=== PATIENT | male | born 1990 | race Caucasian/White ===

== ENCOUNTER 2017-08-16 13:48 | Emergency (ER) | payer SELFPAY ==
[~2017-08-16] VITALS: Ht 172.7 cm; Wt 63.3 kg
[~2017-08-16 13:48] MED LIST: AZITHROMYCIN500 M1 PO; IBUPROFEN600 MG PO; IBUPROFEN800 MG PO; MOTRIN800 MG PO; NOHOMEMEDS; NORCO 7.5/321 TABLET PO; PEN-VEE K,VEET500 MG PO; PHENAZOPYRIDIN200 MG PO; TRAMADOL HCL50 MG PO; ZOFRAN ODT4 MG PO
[2017-08-16] MEDS ORDERED: PEN-VEE K,VEET500 MG PO (16:31)
[2017-08-16] MEDS ORDERED: INDOCIN50 MG PO (16:31)
[2017-08-16] MEDS ORDERED: ULTRACET1 TABLET PO (16:34)
[2017-08-16 16:58] VITALS: BP 123/87
== END 2017-08-16 16:59 | disposition home or self-care (01) ==
LOC: EME 13:48
DX: K02.9 Dental caries, unspecified (principal); F17.200 Nicotine dependence, unspecified, uncomplicated

== ENCOUNTER 2017-08-24 21:05 | Emergency (ER) | payer OTHER ==
[~2017-08-24] VITALS: Ht 172.7 cm; Wt 63.0 kg
[~2017-08-24 21:05] MED LIST changes: +INDOCIN50 MG PO; +ULTRACET1 TABLET PO
[2017-08-24 23:43] VITALS: BP 128/72
== END 2017-08-24 23:43 | disposition home or self-care (01) ==
LOC: EME 21:05
DX: S80.01XA Contusion of right knee, initial encounter (principal); W18.30XA Fall on same level, unspecified, initial encounter; Y93.89 Activity, other specified; Y99.0 Civilian activity done for income or pay; Y92.59 Other trade areas as the place of occurrence of the external cause
CPT/HCPCS: 73564; 99281; 99283

== ENCOUNTER 2017-12-13 20:05 | Emergency (ER) | payer SELFPAY ==
[~2017-12-13] VITALS: Ht 172.7 cm; Wt 58.9 kg
[2017-12-13 20:38] LABS: APPEARANCE CLOUDY ((CLEAR)); BILIRUBIN NEGATIVE; BLOOD NEGATIVE; COLOR YELLOW ((YELLOW)); GLUCOSE (STRIP) NEGATIVE; KETONES NEGATIVE; LEUKOCYTES NEGATIVE; NITRITE NEGATIVE; PROTEIN (STRIP) NEGATIVE; SPECIFIC GRAVITY 1.027 (1.000-1.030)
[2017-12-13 20:57] LABS: BACTERIA NONE SEEN /HPF; CALCIUM OXALATE CRYSTALS 3+ /HPF; EPITHELIAL CELLS NONE SEEN /HPF; MUCUS TRACE /LPF; WHITE BLOOD CELLS NONE SEEN /HPF (0-5)
[2017-12-13 21:30] LABS: HEMATOCRIT 50.3 % (38.0-50.0); HEMOGLOBIN 17.5 G/DL (12.5-16.6); MCH 33.2 PG (29.0-34.0); MCHC 34.8 G/DL (30.0-36.0); MCV 95.4 FL (86-99); PLATELET COUNT 235 K/uL (156-360); RBC DIS.WIDTH-CV 12.1 % (11.8-14.6); RED BLOOD COUNT 5.27 M/uL (4.00-5.50); WHITE BLOOD COUNT 14.4 K/uL (4.1-10.2)
[2017-12-13 21:35] LABS: CHLORIDE 104 mEq/L (99-109); POTASSIUM 4.5 mEq/L (3.7-5.4); SODIUM 141 mEq/L (136-147)
[2017-12-13 21:36] LABS: GLUCOSE 88 mg/dL (70-99)
[2017-12-13 21:40] LABS: GFR ESTIMATE (CALCULATED) > 59 mL/min/ (58.99-99999)
[2017-12-13 21:41] LABS: UREA NITROGEN (BUN) 17 mg/dL (9-23)
[2017-12-13] MEDS ORDERED: COLACE100 MG PO (22:51)
[2017-12-13] MEDS ORDERED: PYRIDIUM200 MG PO (22:51)
[2017-12-13 22:59] VITALS: BP 111/74
== END 2017-12-13 23:00 | disposition home or self-care (01) ==
LOC: EXP 20:05 → EME 20:05 → EXP 23:00
PROVIDERS: Physician Assistant
DX: R30.0 Dysuria (principal); K59.00 Constipation, unspecified; F17.200 Nicotine dependence, unspecified, uncomplicated; Z87.440 Personal history of urinary (tract) infections
CPT/HCPCS: 74176; 80048; 81003; 85027

== ENCOUNTER 2018-03-12 21:32 | Emergency (ER) | payer SELFPAY ==
[~2018-03-12] VITALS: Ht 172.7 cm; Wt 59.9 kg
[~2018-03-12 21:32] MED LIST changes: +COLACE100 MG PO; +PYRIDIUM200 MG PO
[2018-03-12 22:24] LABS: HEMATOCRIT 48.9 % (38.0-50.0); HEMOGLOBIN 16.8 G/DL (12.5-16.6); MCH 32.9 PG (29.0-34.0); MCHC 34.4 G/DL (30.0-36.0); MCV 95.9 FL (86-99); PLATELET COUNT 194 K/uL (156-360); RBC DIS.WIDTH-CV 11.8 % (11.8-14.6); RBC DIS.WIDTH-SD 41.6 % (39-53); WHITE BLOOD COUNT 12.4 K/uL (4.1-10.2)
[2018-03-12 22:34] LABS: CHLORIDE 105 mEq/L (99-109); POTASSIUM 4.5 mEq/L (3.7-5.4); SODIUM 141 mEq/L (136-147)
[2018-03-12 22:36] LABS: GLUCOSE 86 mg/dL (70-99)
[2018-03-12 22:40] LABS: GFR ESTIMATE (CALCULATED) > 59 mL/min/ (58.99-99999)
[2018-03-12 22:41] LABS: UREA NITROGEN (BUN) 13 mg/dL (9-23)
[2018-03-13 00:59] LABS: APPEARANCE CLOUDY ((CLEAR)); BILIRUBIN NEGATIVE; BLOOD NEGATIVE; COLOR YELLOW ((YELLOW)); GLUCOSE (STRIP) NEGATIVE; KETONES NEGATIVE; LEUKOCYTES NEGATIVE; NITRITE NEGATIVE; PROTEIN (STRIP) 30; SPECIFIC GRAVITY 1.023 (1.000-1.030)
[2018-03-13 01:07] LABS: BACTERIA NONE SEEN /HPF; EPITHELIAL CELLS NONE SEEN /HPF; MUCUS 4+ /LPF; RED BLOOD CELLS 0-5 /HPF (0-5); UCUL ADDED? YES
[2018-03-13] MEDS ORDERED: CIPRO500 MG PO (01:21)
[2018-03-13 01:32] VITALS: BP 110/71
== END 2018-03-13 01:33 | disposition home or self-care (01) ==
LOC: EME 21:32
DX: N39.0 Urinary tract infection, site not specified (principal); N50.82 Scrotal pain; Z87.440 Personal history of urinary (tract) infections; F17.200 Nicotine dependence, unspecified, uncomplicated
CPT/HCPCS: 76775; 76870; 80048; 81003; 85027; 87086; 99281; 99284